=== PATIENT | male | born 1955 | race American Indian/Alaskan Native ===

== ENCOUNTER 2019-03-25 22:17 | Emergency (ER) | payer MEDICARE, OTHER ==
--- NOTE | 2019-03-25 22:34 | Emergency Department Report ---
Blank Doc - Documentation Documentation: 64 y o male presents cc of right sided flank pain and bilateral leg pain x 1 we ek pt denies trauma injuries, dysuria,with BM labs, ua states hes a diabetic on novolog 70/30 BID
[2019-03-25 23:06] LABS: Basophils # (Auto) 0.1 K/mm3 (0.0-0.1); Basophils % (Auto) 1.3 % (0.0-1.8); Eosinophils # (Auto) 0.4 K/mm3 (0.0-0.4); Eosinophils % (Auto) 5.1 % (0.0-4.3); Hematocrit 38.1 % (35.5-45.6); Hemoglobin 13.1 gm/dl (11.8-15.2); Lymphocytes # (Auto) 2.2 K/mm3 (1.2-5.4); Lymphocytes % (Auto) 25.3 % (13.4-35.0); Mean Corpuscular HGB Conc 34 % (32-34); Mean Corpuscular Volume 88 fl (84-94); Monocytes % (Auto) 11.4 % (0.0-7.3); Platelet Count 355 K/mm3 (140-440); Red Blood Count 4.32 M/mm3 (3.65-5.03); Red Cell Distribution Width 13.9 % (13.2-15.2)
[2019-03-25 23:21] LABS: Bilirubin,Urine NEG (Negative); Blood,Urine NEG (Negative); Color,Urine Straw (Yellow); Protein,Urine <15 mg/dL mg/dL (Negative); Urobilinogen,Urine < 2.0 mg/dL (<2.0); WBC,Urine < 1.0 /HPF (0.0-6.0)
--- NOTE | 2019-03-25 23:57 | Cat Scan Report ---
PROCEDURE: CT abdomen and pelvis without contrast. TECHNIQUE: Computerized axial tomography of the abdomen and pelvis was performed without intravenous contrast. This study is performed without intravascular contrast material and its sensitivity for ab dominal and pelvic pathology, including neoplasms, inflammation, abscess, free fluid, thrombosis, art erial dissection and infarction, is reduced compared with a contrast enhanced study. CT DOSE LENGTH PRODUCT: Not provided mGycm HISTORY: Abdominal pain. COMPARISONS: None. FINDINGS: The lung bases are clear. There are no pleural effusions. The heart size is normal. The liver, pancre as and spleen are grossly normal. The gallbladder is present. There is no biliary dilatation. The adr enal glands are not enlarged. There is probably a small cyst in the lateral portion of the left kidne y. The abdominal aorta has a normal caliber. There is no retroperitoneal adenopathy. The unopacified gastrointestinal tract is unremarkable. A normal appendix is visible. There is a small umbilical fabiola ia containing fat. The bladder, seminal vesicles and prostate appear normal. There are small bilatera l inguinal canal hernias containing fat. There is a small midline ventral wall hernia located superio r to the umbilicus. This also contains fat. There is osteoarthritis involving the facet joints in the lower lumbar spine. IMPRESSION: Small bilateral inguinal canal hernias and small umbilical hernia containing fat. Small ventral wall hernia containing fat. Probable small left renal cyst. No evidence of acute disease in the abdomen or pelvis. This document is electronically signed by Andrew Sánchez MD., March 25 2019 11:55:41 PM ET
[2019-03-26] LABS: Alanine Aminotransferase 21 units/L (7-56); Albumin 4.1 g/dL (3.9-5); BUN/Creatinine Ratio 13; Blood Urea Nitrogen 13 mg/dL (9-20); Calcium 9.5 mg/dL (8.4-10.2); Hemolysis Index 3
[2019-03-26] MEDS ORDERED: TORADOL IV ONE (00:03)
[2019-03-26] MEDS ORDERED: NACL 0.9% 1000 ML 1,000 ML IV ONE (00:03)
[2019-03-26] MEDS ORDERED: K-DUR PO ONE (00:03)
--- NOTE | 2019-03-26 02:13 | Emergency Department Report ---
ED Abdominal Pain HPI - General Chief Complaint: Abdominal Pain Stated Complaint: RT LOWER ABD PAIN RT LEG PAIN Time Seen by Provider: 03/25/19 22:31 Source: patient Mode of arrival: Ambulatory Limitations: No Limitations - History of Present Illness Initial Comments: This is a 64-year-old male nontoxic, well nourished in appearance, no acute signs of distress presents to the ED with c/o of right sided lower groin pain and bilateral leg pains. Patient denies any nausea or vomiting. Patient describes pain as cramping and aching with level of 3/10 diffuse. Patient denies chest pain, short of breath, fever, chills, headache, stiff neck, numbness or tingling. Patient denies any diarrhea or constipation. Patient denies any recent travels. Patient denies any allergies. PMH includes arthritis, diabetes and hypertension. MD Complaint: abdominal pain -: days(s) Location: diffuse Radiation: none Migration to: no migration Severity: mild Severity scale (0 -10): 3 Quality: aching Consistency: intermittent Improves With: nothing Worsens With: nothing Associated Symptoms: denies: nausea, vomiting, diarrhea, fever, chills, constipation, dysuria, hematemesis, hematochezia, melena, hematuria, anorexia, syncope - Related Data Previous Rx's Medication Instructions Recorded Last Taken Type Ciprofloxacin HCl [Cipro] 500 mg PO BID #20 tablet 09/11/18 Unknown Rx Phenazopyridine [Pyridium] 200 mg PO TID #10 tab 09/11/18 Unknown Rx Acetaminophen/Codeine [Tylenol 1 tab PO Q6H PRN #12 tab 03/26/19 Unknown Rx /Codeine # 3 tab] Allergies Allergy/AdvReac Type Severity Reaction Status Date / Time No Known Allergies Allergy Unverified 12/06/14 08:27 ED Review of Systems ROS: Stated complaint: RT LOWER ABD PAIN RT LEG PAIN Other details as noted in HPI Constitutional: denies: chills, fever Eyes: denies: eye pain, eye discharge, vision change ENT: denies: ear pain, throat pain Respiratory: denies: cough, shortness of breath, wheezing Cardiovascular: denies: chest pain, palpitations Endocrine: no symptoms reported Gastrointestinal: other (groin pain). denies: abdominal pain, nausea, diarrhea Genitourinary: denies: urgency, dysuria Musculoskeletal: arthralgia. denies: back pain, joint swelling Skin: denies: rash, lesions Neurological: denies: headache, weakness, paresthesias Psychiatric: denies: anxiety, depression Hematological/Lymphatic: denies: easy bleeding, easy bruising ED Past Medical Hx - Past Medical History Previous Medical History?: Yes Hx Hypertension: Yes Hx Diabetes: Yes - Surgical History Past Surgical History?: No - Social History Smoking Status: Never Smoker Substance Use Type: None - Medications Home Medications: Home Medications Medication Instructions Recorded Confirmed Last Taken Type Ciprofloxacin HCl [Cipro] 500 mg PO BID #20 tablet 09/11/18 Unknown Rx Phenazopyridine [Pyridium] 200 mg PO TID #10 tab 09/11/18 Unknown Rx Acetaminophen/Codeine [Tylenol 1 tab PO Q6H PRN #12 tab 03/26/19 Unknown Rx /Codeine # 3 tab] ED Physical Exam - General Limitations: No Limitations General appearance: alert, in no apparent distress - Head Head exam: Present: atraumatic, normocephalic - Eye Eye exam: Present: normal appearance - Neck Neck exam: Present: normal inspection, full ROM. Absent: tenderness, meningismus, lymphadenopathy - Respiratory Respiratory exam: Present: normal lung sounds bilaterally. Absent: respiratory distress, wheezes, rales, rhonchi, stridor, chest wall tenderness, accessory muscle use, decreased breath sounds, prolonged expiratory - Cardiovascular Cardiovascular Exam: Present: regular rate, normal rhythm, normal heart sounds. Absent: bradycardia, tachycardia, irregular rhythm, systolic murmur, diastolic murmur, rubs, gallop - GI/Abdominal GI/Abdominal exam: Present: soft, normal bowel sounds, hernia (umbilical and inguinal areas that are reducible with no gangrene noted). Absent: distended, tenderness, guarding, rebound, rigid, diminished bowel sounds - Rectal Rectal exam: Present: deferred - Extremities Exam Extremities exam: Present: normal inspection, full ROM, normal capillary refill. Absent: tenderness, pedal edema, joint swelling, calf tenderness - Back Exam Back exam: Present: normal inspection, full ROM - Neurological Exam Neurological exam: Present: alert, oriented X3, normal gait - Psychiatric Psychiatric exam: Present: normal affect, normal mood - Skin Skin exam: Present: warm, dry, intact, normal color. Absent: rash ED Course Vital Signs 03/25/19 03/26/19 22:32 00:19 Temperature 98.3 F Pulse Rate 66 Respiratory 20 18 Rate Blood Pressure 157/78 O2 Sat by Pulse 100 Oximetry - Reevaluation(s) Reevaluation #1: 03/26/19 02:12 Patient is speaking in full sentences with no signs of distress noted. ED Medical Decision Making - Lab Data Result diagrams: 03/25/19 22:42 03/25/19 22:44 - Medical Decision Making This is a 64-year-old male that presents with arthralgia and umbilical and inguinal hernias. Patient is stable and was examined by me. There is no abdominal tenderness. Negative signs of symptoms of appendicitis. Labs obtained. UA obtained. CT of abdomen obtained and dictated by the radiologist. Patient is notified of the report with no questions noted by the patient. Vital signs are stable prior to discharge. Patient received medical treatment in the ED which patient stated symptoms has resovled and subsided. Patient was also instructed to Follow-up with a primary care doctor in 3-5 days or if symptoms worsen and continue return to emergency room as soon as possible. At time of discharge, the patient does not seem toxic or ill in appearance. No acute signs of distress noted. Patient agrees to discharge treatment plan of care. No further questions noted by the patient. Critical care attestation.: If time is entered above; I have spent that time in minutes in the direct care of this critically ill patient, excluding procedure time. ED Disposition Clinical Impression: Arthralgia, Inguinal hernia, Umbilical hernia Disposition: -01 TO HOME OR SELFCARE Is pt being admited?: No Does the pt Need Aspirin: No Condition: Stable Instructions: Arthralgia (ED), Inguinal Hernia (ED), Umbilical Hernia (ED), Acetaminophen/Codeine (By mouth) Additional Instructions: Follow-up with a primary care doctor in 3-5 days or if symptoms worsen and continue return to emergency room as soon as possible. Do not operate any machinery while taking Tylenol with codeine as this may cause drowsiness. Prescriptions: Acetaminophen/Codeine [Tylenol /Codeine # 3 tab] 1 tab PO Q6H PRN #12 tab PRN Reason: Pain , Severe (7-10) Referrals: JYOTI MUNOZ MD [Primary Care Provider] - 3-5 Days PRIMARY CARE, [Referring] - 3-5 Days ISADORA ASHRAF DO [Staff Physician] - 3-5 Days [facility] [place] [Outside] - 3-5 Days Forms: Work/School Release Form(ED)
[2019-03-26 02:29] VITALS: BP 142/80
== END 2019-03-26 02:28 | disposition home or self-care (01) ==
LOC: ED 22:17
DX: K40.90 Unilateral inguinal hernia, without obstruction or gangrene, not specified as recurrent (principal); K42.9 Umbilical hernia without obstruction or gangrene; M19.90 Unspecified osteoarthritis, unspecified site; I10 Essential (primary) hypertension; E11.9 Type 2 diabetes mellitus without complications; M79.604 Pain in right leg; M79.605 Pain in left leg; Z79.899 Other long term (current) drug therapy
CPT/HCPCS: 36415; 74176; 80053; 81001; 85025; 96374; 99284; J1885; J7030

== ENCOUNTER 2019-12-07 09:52 | Emergency (ER) | payer MEDICARE, OTHER ==
[2019-12-07 10:31] VITALS: BP 179/93
--- NOTE | 2019-12-07 11:54 | Emergency Department Report ---
Chief Complaint: Extremity Problem,Nontraumatic Stated Complaint: PAIN Time Seen by Provider: 12/07/19 11:05 - HPI History of Present Illness: This is a 64-year-old male with a history of diabetes 1 currently on insulin who presents the ED complaining of bilateral buttock pain radiating down both his legs intermittently x1 month. Patient does note that sometimes he feels some tingling and numb sensation to his bilateral foot. 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 Patient states that he is currently taking gabapentin for nerve pain. Patient is states that that does not resolve. Patient states that pain is intermittent is been going on for about a month. He denies any injury, trauma, difficulty walking difficulty with bowel movements, abdominal pain, nausea vomiting, chest pain or shortness of breath Also wanting to be evaluated for a rash on his back. Patient states rash has been there for some time now and itches a little bit but no other problems - ROS Review of Systems: As noted in HPI - Exam Vital Signs: Vital Signs 12/07/19 10:25 Temperature 98.1 F Pulse Rate 70 Respiratory 18 Rate Blood Pressure 179/93 O2 Sat by Pulse 100 Oximetry Physical Exam: As noted gENERAL: Alert and oriented x3, no apparent distress, Normal Gait, atraumatic. BACK: Full range of motion, no spinal tenderness, nontender to palpation. EXTREMITIES/MUSCULOSKELETAL: No cyanosis, clubbing, rash, lesions or edema. Full ROM bilaterally. UE/LE Pulses 2+ bilaterally. LE and UE 5+ strength bilaterally, NEUROLOGIC: The patient is cooperative with no focal neurologic deficits. Cranial nerves II through XII are grossly intact. Normal speech. Normal sensation in bilateral upper and lower extremities, No loss of sensation, SKIN: Warm and dry, mild hypopigmented lesion with demarcated borders consistent with fungal dermatitis, No ulceration or induration present. MSE screening note: Focused history and physical exam performed. Due to findings the following was ordered: ED Medical Decision Making - Medical Decision Making 64-year-old male who presents with diabetic neuropathy. This is a chronic issue and is associated with his diabetes. I discussed with patient to continue taking his gabapentin. Discussed follow-up with his pie chef and primary care physician. Ketoconazole given for rash. Discussed with patient if symptoms worsen to return to ED immediately. Patient was not ambulatory in no acute distress or had not had no neurological deficit ED Disposition for MSE Clinical Impression: Diabetic neuropathy associated with type 1 diabetes mellitus Disposition: MED SCREENING EXAM-LEFT Is pt being admited?: No Does the pt Need Aspirin: No Condition: Stable Instructions: Diabetes Mellitus Type 2 in Adults (ED) Additional Instructions: Make sure to follow up with the primary care physician as discussed. Take all your medications as you've been prescribed. If you have any worsening symptoms or develop new symptoms please return to ED immediately. Prescriptions: Ketoconazole 2% [Nizoral] 1 applicatio TP BID #4 tube Referrals: PRIMARY CARE, [Primary Care Provider] - 3-5 Days [facility] [Provider Group] - 3-5 Days [facility] [Provider Group] - 3-5 Days Forms: Accompanied Note, Work/School Release Form(ED) Time of Disposition: 12:01
== END 2019-12-07 12:10 | disposition left against medical advice (07) ==
LOC: ED 09:52
DX: E10.40 Type 1 diabetes mellitus with diabetic neuropathy, unspecified (principal); M54.5 Low back pain; Z79.4 Long term (current) use of insulin
CPT/HCPCS: 99281

== ENCOUNTER 2020-08-06 22:02 | Emergency (ER) | payer MEDICARE, OTHER ==
[2020-08-06 22:45] VITALS: BP 155/68
[2020-08-06 23:47] LABS: Basophils # (Auto) 0.2 K/mm3 (0.0-0.1); Basophils % (Auto) 2.1 % (0.0-1.8); Eosinophils # (Auto) 1.1 K/mm3 (0.0-0.4); Eosinophils % (Auto) 11.3 % (0.0-4.3); Hematocrit 39.2 % (35.5-45.6); Hemoglobin 13.1 gm/dl (11.8-15.2); Lymphocytes # (Auto) 0.9 K/mm3 (1.2-5.4); Lymphocytes % (Auto) 9.1 % (13.4-35.0); Mean Corpuscular HGB Conc 33 % (32-34); Mean Corpuscular Volume 92 fl (84-94); Monocytes # (Auto) 0.7 K/mm3 (0.0-0.8); Platelet Count 303 K/mm3 (140-440); Red Blood Count 4.25 M/mm3 (3.65-5.03); Red Cell Distribution Width 14.5 % (13.2-15.2)
--- NOTE | 2020-08-07 00:09 | Emergency Department Report ---
ED General Adult HPI - General Chief complaint: Pain General Stated complaint: CHILLS/COLD Time Seen by Provider: 08/06/20 23:58 Source: patient Mode of arrival: Ambulatory Limitations: No Limitations - History of Present Illness Initial comments: CC: "I have chills." HPI: Mr. Swann is a 65 yo male with hx of DM, HTN, dermatitis who presents with rash and chills. For the past 2 months, patient has been followed by [place] machine operator for skin rash of lower legs. He has itching at the area of the scaly rash. He has experienced chills and bodyaches for 2 days. PCP would not provide COVID test with minor symptoms. -: Gradual, days(s) (2 days chills bodyaches), month(s) (2 months rash) Consistency: constant Improves with: none Worsens with: none Associated Symptoms: denies other symptoms - Related Data Previous Rx's Medication Instructions Recorded Last Taken Type Ciprofloxacin HCl [Cipro] 500 mg PO BID #20 tablet 09/11/18 Unknown Rx Phenazopyridine [Pyridium] 200 mg PO TID #10 tab 09/11/18 Unknown Rx Acetaminophen/Codeine [Tylenol 1 tab PO Q6H PRN #12 tab 03/26/19 Unknown Rx /Codeine # 3 tab] Ketoconazole 2% [Nizoral] 1 applicatio TP BID #4 tube 12/07/19 Unknown Rx hydrOXYzine HCL [Atarax] 25 mg PO Q6HR PRN #20 tablet 08/07/20 Unknown Rx Allergies Allergy/AdvReac Type Severity Reaction Status Date / Time No Known Allergies Allergy Unverified 12/06/14 08:27 ED Review of Systems ROS: Stated complaint: CHILLS/COLD Other details as noted in HPI Comment: All other systems reviewed and negative Constitutional: denies: fever, malaise Respiratory: denies: cough, shortness of breath Skin: rash ED Past Medical Hx - Past Medical History Previous Medical History?: Yes Hx Hypertension: Yes Hx Diabetes: Yes - Surgical History Past Surgical History?: No - Social History Smoking Status: Never Smoker Substance Use Type: None - Medications Home Medications: Home Medications Medication Instructions Recorded Confirmed Last Taken Type Ciprofloxacin HCl [Cipro] 500 mg PO BID #20 tablet 09/11/18 Unknown Rx Phenazopyridine [Pyridium] 200 mg PO TID #10 tab 09/11/18 Unknown Rx Acetaminophen/Codeine [Tylenol 1 tab PO Q6H PRN #12 tab 03/26/19 Unknown Rx /Codeine # 3 tab] Ketoconazole 2% [Nizoral] 1 applicatio TP BID #4 tube 12/07/19 Unknown Rx hydrOXYzine HCL [Atarax] 25 mg PO Q6HR PRN #20 tablet 08/07/20 Unknown Rx ED Physical Exam - General Limitations: No Limitations General appearance: alert, in no apparent distress, other (appears comfortable well) - Head Head exam: Present: atraumatic, normocephalic - Eye Eye exam: Present: normal appearance - ENT ENT exam: Present: mucous membranes moist - Neck Neck exam: Present: normal inspection, full ROM - Respiratory Respiratory exam: Present: normal lung sounds bilaterally. Absent: respiratory distress, wheezes, rales - Cardiovascular Cardiovascular Exam: Present: regular rate, normal rhythm, normal heart sounds. Absent: systolic murmur, diastolic murmur, rubs, gallop - GI/Abdominal GI/Abdominal exam: Present: soft, normal bowel sounds. Absent: distended, tenderness, guarding, rebound - Rectal Rectal exam: Present: deferred - Extremities Exam Extremities exam: Present: normal inspection - Back Exam Back exam: Present: normal inspection - Neurological Exam Neurological exam: Present: alert, oriented X3 - Psychiatric Psychiatric exam: Present: normal affect, normal mood - Skin Skin exam: Present: warm, dry, normal color, other (flaky scaly skin lower extremities). Absent: rash ED Course Vital Signs 08/06/20 22:19 Temperature 98.1 F Pulse Rate 81 Respiratory 18 Rate Blood Pressure 155/68 O2 Sat by Pulse 100 Oximetry ED Medical Decision Making - Lab Data Result diagrams: 08/06/20 23:03 08/06/20 23:03 Laboratory Results - last 24 hr 08/06/20 08/06/20 23:00 23:03 WBC 10.1 RBC 4.25 Hgb 13.1 Hct 39.2 MCV 92 MCH 31 MCHC 33 RDW 14.5 Plt Count 303 Lymph % (Auto) 9.1 L [place] % (Auto) 7.0 Eos % (Auto) 11.3 H Baso % (Auto) 2.1 H Lymph # (Auto) 0.9 L [place] # (Auto) 0.7 Eos # (Auto) 1.1 H Baso # (Auto) 0.2 H Seg Neutrophils % 70.5 H Seg Neutrophils # 7.1 POC Glucose 222 H - Medical Decision Making 1. severe xerosis: prescribed Atarax 2. chills body aches: viral syndrome: influenza vs COVID-19 infection - supportive care instructions given, encouraged quarantine for 14 days labs reviewed CBC BMP unremarkable Critical care attestation.: If time is entered above; I have spent that time in minutes in the direct care of this critically ill patient, excluding procedure time. ED Disposition Clinical Impression: Xerosis of skin, Viral syndrome Disposition: DC-01 TO HOME OR SELFCARE Is pt being admited?: No Does the pt Need Aspirin: No Condition: Stable Prescriptions: hydrOXYzine HCL [Atarax] 25 mg PO Q6HR PRN #20 tablet PRN Reason: Itching Referrals: PRIMARY CARE, [Primary Care Provider] - 3-5 Days
[2020-08-07 00:14] LABS: BUN/Creatinine Ratio 13; Blood Urea Nitrogen 16 mg/dL (9-20); Calcium 9.4 mg/dL (8.4-10.2); Hemolysis Index 24
== END 2020-08-07 00:26 | disposition home or self-care (01) ==
LOC: ED 22:02
DX: L85.3 Xerosis cutis (principal); B34.9 Viral infection, unspecified
CPT/HCPCS: 36415; 80048; 82962; 85025; 99283

== ENCOUNTER 2021-03-28 17:48 | Emergency (ER) | payer MEDICARE, OTHER ==
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
[2021-03-29 01:48] VITALS: BP 159/71
== END 2021-03-29 01:35 | disposition home or self-care (01) ==
LOC: ED 17:48
DX: M54.2 Cervicalgia (principal); M54.5 Low back pain; M25.551 Pain in right hip; I10 Essential (primary) hypertension; E11.9 Type 2 diabetes mellitus without complications; Z79.2 Long term (current) use of antibiotics; Z79.899 Other long term (current) drug therapy; V49.49XA Driver injured in collision with other motor vehicles in traffic accident, initial encounter; Y93.89 Activity, other specified; Y92.410 Unspecified street and highway as the place of occurrence of the external cause; Y99.8 Other external cause status
CPT/HCPCS: 72040; 72100; 72125